=== PATIENT | female | born 1970 | race Caucasian/White ===

== ENCOUNTER → 2016-10-28 | Outpatient (REF) | payer OTHER | LOC: M LAB REF 12:43 | PROVIDERS: ATTEND Physician Assistant | DX: J02.9 Acute pharyngitis, unspecified (principal) ==

== ENCOUNTER 2016-12-27 07:27 | Emergency (ER) | payer OTHER ==
[~2016-12-27] VITALS: Ht 162.6 cm; Wt 75.7 kg
[2016-12-27 07:34] VITALS: BP 159/99
[2016-12-27] MEDS ORDERED: ZOLO100T PO (07:36)
[2016-12-27] MEDS ORDERED: MAGIC MOUTHWASH SUSPENSION BTL SSP ONE (08:00)
== END 2016-12-27 08:47 | disposition home or self-care (01) ==
LOC: M ED 07:54
DX: J02.9 Acute pharyngitis, unspecified (principal); F32.9 Major depressive disorder, single episode, unspecified

== ENCOUNTER → 2017-02-24 | Outpatient (REF) ==
[~2017-02-24] MED LIST: ZOLO100T PO
[2017-02-24 10:00] LABS: MEAN CORPUSCULAR HEMOGLOBIN 31.9 pg (27.0-33.0); MEAN CORPUSCULAR HGB CONC 34.4 g/dl (32.0-36.5); RED CELL DISTRIBUTION WIDTH 12.5 % (11.5-14.5); WHITE BLOOD COUNT 6.5 K/mm3 (4.0-10.0)
[2017-02-24 10:22] LABS: ANION GAP 4 MEQ/L (8-16); BLOOD UREA NITROGEN 15 MG/DL (7-18); CALCIUM LEVEL 8.9 MG/DL (8.5-10.1); CARBON DIOXIDE LEVEL 29 MEQ/L (21-32); CHLORIDE LEVEL 105 MEQ/L (98-107); CHOLESTEROL LEVEL 192 MG/DL (<200); CREATININE FOR GFR 0.87 MG/DL (0.55-1.02); GLOMERULAR FILTRATION RATE > 60.0 (>58); GLUCOSE, FASTING 80 MG/DL (70-105); POTASSIUM SERUM 4.4 MEQ/L (3.5-5.1); SODIUM LEVEL 138 MEQ/L (136-145); TRIGLYCERIDES LEVEL 162 MG/DL (<150)
--- NOTE | 2017-02-24 12:33 | REPMRS ---
Patient History The patient states she has not had a clinical breast exam in over a year. Family history of breast cancer in mother at age 62 and endometrial cancer in mother at age 23. Digital Mammo Screening Bilat: February 24, 2017 - Exam #: [id number] Bilateral CC and MLO view(s) were taken. Technologist: Kalyani Mcguire, Technologist Prior study comparison: February 19, 2016, bilateral digital mammo screening bilat performed at [facility]. December 18, 2014, bilateral digital mammo screening bilat performed at [facility]. FINDINGS: There are scattered fibroglandular densities. There has been no change in the appearance of the mammogram from the prior studies. There is a mild amount of residual fibroglandular tissue which is fairly symmetric. There is no interval development of dominant mass, architectural distortion, or clustered microcalcification suggestive of malignancy. ASSESSMENT: BI-RADS/ACR category 1 mammogram. Negative. Recommendation Routine screening mammogram in 1 year (for women over age 40). This mammogram was interpreted with the aid of an FDA-approved computer-aided dectection system. Electronically Signed By: Carter Zuluaga MD 02/24/17 0793
--- NOTE | 2017-02-24 22:25 | ECGEPIP ---
Stationary ECG Study [facility] Test Date: 2017-02-24 Pat Name: ANT LUQUE Department: Room: - Gender: F Flight Service Agent: : 1970 Requested By: SHARAN ALLEN Order Number: [id number] Reading MD: Petros Ferreira Measurements Intervals [place] Rate: 59 P: 24 OR: 146 QRS: 45 QRSD: 87 T: 43 QT: 379 QTc: 377 Interpretive Statements Sinus bradycardia Otherwise normal EKG No significant change since 02/18/2016 Electronically Signed On 02-24-2017 22:24:59 EDT by Petros Ferreira
--- NOTE | 2017-02-25 02:46 | REP ---
Clinical: Annual employee health examination . Comparison: 02/18/2016 . Technique: PA and lateral. Findings: The mediastinum and cardiac silhouette are normal. The lung spears are clear and without acute consolidation, effusion, or pneumothorax. Incidental note is made of azygos fissure. The skeletal structures are intact and normal. Impression: 1. No acute cardiopulmonary process. Signed by Taiwo Moreno MD 02/25/2017 02:38 A
== END ==
LOC: M LAB 09:22
PROVIDERS: ATTEND Family Medicine
DX: Z02.1 Encounter for pre-employment examination (principal)

== ENCOUNTER → 2019-02-06 | Outpatient (REF) ==
[2019-02-06 10:38] LABS: HEMATOCRIT 42.1 % (36.0-47.0); HEMOGLOBIN 14.3 g/dl (12.0-15.5); MEAN CORPUSCULAR HEMOGLOBIN 31.3 pg (27.0-33.0); MEAN CORPUSCULAR VOLUME 92.1 fl (80.0-96.0); PLATELET COUNT, AUTOMATED 277 10^3/uL (150-450); RED BLOOD COUNT 4.57 10^6/uL (4.00-5.40); WHITE BLOOD COUNT 6.7 10^3/uL (4.0-10.0)
--- NOTE | 2019-02-06 10:48 | REP ---
Clinical: Nursing contract requirement . Comparison: 03/02/2018 . Technique: PA and lateral. Findings: The mediastinum and cardiac silhouette are normal. The lung spears are clear and without acute consolidation, effusion, or pneumothorax. The skeletal structures are intact and normal. Impression: 1. No acute cardiopulmonary process. Electronically Signed by Taiwo Moreno MD 02/06/2019 10:40 A
[2019-02-06 11:01] LABS: BLOOD UREA NITROGEN 14 MG/DL (7-18); CALCIUM LEVEL 9.5 MG/DL (8.5-10.1); CARBON DIOXIDE LEVEL 27 MEQ/L (21-32); CHLORIDE LEVEL 107 MEQ/L (98-107); CHOLESTEROL LEVEL 208 MG/DL (<200); CHOLESTEROL RISK RATIO 3.851 (<5); CREATININE FOR GFR 0.87 MG/DL (0.55-1.30); GLOMERULAR FILTRATION RATE > 60.0 (>58); GLUCOSE, FASTING 80 MG/DL (70-100); HDL CHOLESTEROL 54 MG/DL (>40); LDL CHOLESTEROL 124 MG/DL (<100); NON-HDL-C 154 MG/DL; POTASSIUM SERUM 4.7 MEQ/L (3.5-5.1); SODIUM LEVEL 140 MEQ/L (136-145); TRIGLYCERIDES LEVEL 151 MG/DL (<150)
--- NOTE | 2019-02-06 22:49 | ECGEPIP ---
[facility] Test Date: 2019-02-06 Pat Name: ANT LUQUE Department: Room: - Gender: Female [employer]: CASH : 1970 Requested By: SHARAN ALLEN Order Number: [id number] Reading MD: Humberto Arnold Measurements Intervals [place] Rate: 62 P: 43 MA: 156 QRS: 46 QRSD: 88 T: 44 QT: 374 QTc: 381 Interpretive Statements SINUS RHYTHM No remarkable changes Prior on 03/02/18 at 9:32 Electronically Signed on 02-06-2019 22:49:28 EDT by Humberto Arnold
== END ==
LOC: M LAB 09:39
PROVIDERS: ATTEND Family Medicine
DX: Z02.89 Encounter for other administrative examinations (principal)

== ENCOUNTER → 2019-02-07 | Outpatient (CLI) | payer OTHER ==
--- NOTE | 2019-02-07 14:59 | REP ---
PELVIS ULTRASOUND: Real-time sonographic evaluation of the pelvis performed utilizing transabdominal and endovaginal technique. The bladder measures 7.7 x 7.2 x 8.3 cm. The patient has had a prior hysterectomy. Right ovary measures 1.9 x 1.5 x 1.0 cm. There is no evidence of right ovarian torsion, resistive index 0.58 with duplex Doppler evaluation. Left ovary is not visualized. I see no evidence of mass or free fluid. IMPRESSION: Status post hysterectomy. Left ovary not visualized. Normal right ovary. No evidence of pelvis mass or free fluid. Electronically Signed by Carter Zuluaga MD 02/07/2019 04:19 P
== END ==
LOC: M RAD 12:48
PROVIDERS: ATTEND Family Medicine
DX: R10.2 Pelvic and perineal pain (principal); Z90.79 Acquired absence of other genital organ(s)

== ENCOUNTER → 2019-03-02 | Outpatient (REF) | payer OTHER ==
[2019-03-08 16:11] LABS: HPV HYBRID CAPTURE II Negative (Negative)
== END ==
LOC: M SFHCWAGY 11:39
PROVIDERS: ATTEND Nurse Practitioner Women's Health
DX: Z12.4 Encounter for screening for malignant neoplasm of cervix (principal)
CPT/HCPCS: 87624; G0123

== ENCOUNTER → 2019-03-08 | Outpatient (CLI) | payer OTHER ==
--- NOTE | 2019-03-08 10:17 | REPMRS ---
Patient History The patient states she had a clinical breast exam in February 2019. Family history of endometrial cancer at age 23 in mother, breast cancer at age 62 in mother. Digital Mammo Screening Bilat: March 08, 2019 - Exam #: [id number] Bilateral CC and MLO view(s) were taken. Technologist: Funmi Yang, Technologist Prior study comparison: March 02, 2018, bilateral digital mammo screening bilat performed at [facility]. February 24, 2017, bilateral digital mammo screening bilat performed at [facility]. February 19, 2016, bilateral digital mammo screening bilat performed at [facility]. FINDINGS: There are scattered fibroglandular densities. There has been no change in the appearance of the mammogram from the prior studies. There is a mild amount of scattered fibroglandular density which is fairly symmetric. There is no interval development of dominant mass, architectural distortion, or grouped microcalcification suggestive of malignancy. 3-D tomosynthesis shows no additional findings. Assessment: BI-RADS/ACR category 1 mammogram. Negative Mammogram. Recommendation Routine screening mammogram of both breasts in 1 year (for women over age 40). This patient's Lifetime Breast Cancer Risk is estimated at 16.5 %. This mammogram was interpreted with the aid of an FDA-approved computer-aided dectection system. Electronically Signed By: Sukumar Roberts MD 03/08/19 [id number]
== END ==
LOC: M RAD 09:10
PROVIDERS: ATTEND Family Medicine
DX: Z12.31 Encounter for screening mammogram for malignant neoplasm of breast (principal); Z80.49 Family history of malignant neoplasm of other genital organs; Z80.3 Family history of malignant neoplasm of breast

== ENCOUNTER → 2019-03-15 | Outpatient (CLI) | payer OTHER ==
[~2019-03-15] MED LIST changes: +PROHANCE 279.3MG/ML 15ML VIAL (A9576) As Ordered ONE
--- NOTE | 2019-03-15 11:23 | REP ---
MRI PELVIS WITH AND WITHOUT CONTRAST: Correlation ultrasound 02/07/2019. History is pelvic pain. TECHNIQUE: Multiple sequences obtained in the axial, coronal, and sagittal planes prior to and following the intravenous administration of 15 mL of ProHance. The patient has had a hysterectomy. The ovaries are normal in size and appearance with no evidence of adnexal mass. No pelvic adenopathy is seen in the visualized pelvis. There is also no evidence of free fluid in the visualized pelvis. Urinary bladder is minimally distended and no optimally evaluated. Visualized osseous structures demonstrate no abnormal bone marrow signal. IMPRESSION: Essentially negative MRI of the pelvis with and without contrast status post hysterectomy. Ovaries are normal. No mass, adenopathy, or free fluid in the visualized pelvis. Electronically Signed by Carter Zuluaga MD 03/15/2019 04:22 P
== END ==
LOC: M RAD 09:20
PROVIDERS: ATTEND Nurse Practitioner Women's Health
DX: R10.2 Pelvic and perineal pain (principal); Z90.710 Acquired absence of both cervix and uterus; R19.8 Other specified symptoms and signs involving the digestive system and abdomen
CPT/HCPCS: 72197; A9576

== ENCOUNTER 2019-04-17 06:38 | Day surgery (SDC) | payer OTHER ==
[~2019-04-17] VITALS: Ht 162.6 cm; Wt 73.9 kg
[~2019-04-17 06:38] MED LIST changes: +COLA100C5 PO; +CVS1CAP2 PO; +MULTCAP PO; +NS 1,000 ML IV ONE; -PROHANCE 279.3MG/ML 15ML VIAL (A9576) As Ordered ONE
[2019-04-17] MEDS ORDERED: LIDOCAINE 2% INJ 100 MG/5 ML SDV (FOR ANES.) As Ordered ONE (06:56)
[2019-04-17] MEDS ORDERED: propofoL 200 MG/20 ML VIAL As Ordered ONE ×2 (06:56→07:50)
--- NOTE | 2019-04-17 08:10 | ROOR ---
Patient Name: Katey Pickens Procedure Date: 04/17/2019 7:33 AM Date of : 1970 Age: 48 Room: [facility] Gender: Female Note Status: Finalized Procedure: Colonoscopy Indications: Screening for colorectal malignant neoplasm, Incidental - Change in bowel habits, Incidental - Constipation Providers: Kayode Pham MD Referring MD: Garret Nuno MD Requesting Provider: Medicines: Monitored Anesthesia Care Complications: No immediate complications. Procedure: Pre-Anesthesia Assessment: - Prior to the procedure, a History and Physical was performed, and patient medications and allergies were reviewed. The patient is competent. The risks and benefits of the procedure and the sedation options and risks were discussed with the patient. All questions were answered and informed consent was obtained. Patient identification and proposed procedure were verified by the physician, the nurse and the anesthesiologist in the procedure room. Mental Status Examination: alert and oriented. Airway Examination: normal oropharyngeal airway and neck mobility. Respiratory Examination: clear to auscultation. CV Examination: normal. Prophylactic Antibiotics: The patient does not require prophylactic antibiotics. Prior Anticoagulants: The patient has taken no previous anticoagulant or antiplatelet agents. ASA Grade Assessment: II - A patient with mild systemic disease. After reviewing the risks and benefits, the patient was deemed in satisfactory condition to undergo the procedure. The anesthesia plan was to use monitored anesthesia care (MAC). Immediately prior to administration of medications, the patient was re-assessed for adequacy to receive sedatives. The heart rate, respiratory rate, oxygen saturations, blood pressure, adequacy of pulmonary ventilation, and response to care were monitored throughout the procedure. The physical status of the patient was re-assessed after the procedure. The Colonoscope was introduced through the anus and advanced to the terminal ileum, with identification of the appendiceal orifice and IC valve. The colonoscopy was performed without difficulty. The patient tolerated the procedure well. The quality of the bowel preparation was good. The terminal ileum, ileocecal valve, appendiceal orifice, and rectum were photographed. Scope insertion time was 3 minutes. Scope withdrawal time was 9 minutes. The total duration of the procedure was 12 minutes. Findings: The perianal and digital rectal examinations were normal. The terminal ileum appeared normal. Non-bleeding external and internal hemorrhoids were found during retroflexion. The hemorrhoids were medium-sized. No other significant abnormalities were identified in a careful examination of the remainder of the colon. Impression: - The examined portion of the ileum was normal. - Non-bleeding external and internal hemorrhoids. - No specimens collected. Recommendation: - Patient has a contact number available for emergencies. The signs and symptoms of potential delayed complications were discussed with the patient. Return to normal activities tomorrow. Written discharge instructions were provided to the patient. - High fiber diet. - Continue present medications. - Await pathology results. - Repeat colonoscopy in 10 years for screening purposes. - Telephone GI clinic if symptomatic. - Return to primary care physician. Kayode Pham MD Kayode Pham MD 04/17/2019 8:09:59 AM Electronically signed by Kayode Pham MD Number of Addenda: 0 Note Initiated On: 04/17/2019 7:33 AM Estimated Blood Loss: Estimated blood loss: none.
[2019-04-17 08:20] VITALS: BP 154/91
== END 2019-04-17 08:24 | disposition home or self-care (01) ==
LOC: M OPP 06:38
PROVIDERS: ATTEND Internal Medicine Gastroenterology
DX: K64.8 Other hemorrhoids (principal); R19.4 Change in bowel habit; K59.00 Constipation, unspecified; Z12.11 Encounter for screening for malignant neoplasm of colon

== ENCOUNTER 2019-05-09 13:27 | Outpatient (RCR) | payer OTHER ==
[~2019-05-09 13:27] MED LIST changes: -NS 1,000 ML IV ONE
== END 2019-05-13 ==
LOC: M PT 13:27
PROVIDERS: ATTEND Nurse Practitioner Family
DX: Z51.89 Encounter for other specified aftercare (principal); M54.31 Sciatica, right side

== ENCOUNTER → 2019-05-29 | Outpatient (CLI) | payer OTHER ==
--- NOTE | 2019-05-29 14:20 | REPVR ---
EXAM: MR Lumbar Spine Without Contrast. EXAM DATE/TIME: 05/29/2019 1:28 PM CLINICAL HISTORY: 48 years old, female; Pain; Lumbago with sciatica; Right; Additional info: RT sciatica TECHNIQUE: Imaging protocol: Multiplanar magnetic resonance images of the lumbar spine without intravenous contrast. COMPARISON: No relevant prior studies available. FINDINGS: Vertebrae: The lumbar vertebral bodies are normal in height. The curvature of lumbar spine is normal. The alignment of the lumbar spine is normal. Spinal cord: The conus medullaris is normal in appearance and location at L1. T12-L1: No disc space narrowing. No disc bulge or protrusion. Normal facet joints. No neural foraminal stenosis. No lateral recess stenosis. No central canal stenosis. L1-L2: No disc space narrowing. No disc bulge or protrusion. Normal facet joints. No neural foraminal stenosis. No lateral recess stenosis. No central canal stenosis. L2-L3: No disc space narrowing. No disc bulge or protrusion. Normal facet joints. No neural foraminal stenosis. No lateral recess stenosis. No central canal stenosis. L3-L4: Mild disc desiccation without disc narrowing. There is a 1.5 mm disc bulge without focal disc protrusion. Minimal facet arthropathy. Mild ligamentum flavum hypertrophy. No neural foraminal stenosis. No lateral recess stenosis. No central canal stenosis. L4-L5: No disc space narrowing. Disc desiccation. No disc bulge or protrusion. Normal facet joints. No neural foraminal stenosis. No lateral recess stenosis. No central canal stenosis. L5-S1: Mild/moderate disc space narrowing. A 5 mm right paracentral disc protrusion displaces and compresses the traversing right S1 nerve root at the lateral recess (series 601 image 3, series 401 image 8). Slight bilateral facet degeneration. No neural foraminal stenosis. No lateral recess stenosis. No central canal stenosis. Sacrum/coccyx: The visualized sacroiliac joints are normal. Other bones/joints: The bone marrow signal intensity is normal. Soft tissues: The paravertebral soft tissues are unremarkable. IMPRESSION: At L5-S1, a 5 mm right paracentral disc protrusion displaces and compresses the traversing right S1 nerve root at the lateral recess. Electronically signed by: Gage Stone On 05/29/2019 14:20:15 PM
--- NOTE | 2019-05-29 14:33 | REPVR ---
EXAM: MR Pelvis Without Contrast, Musculoskeletal EXAM DATE/TIME: 05/29/2019 1:28 PM CLINICAL HISTORY: 48 years old, female; Hip pain and pelvic pain; Right hip; Additional info: RT sciatica TECHNIQUE: Imaging protocol: Magnetic resonance images of the pelvis without intravenous contrast. Exam focused on the sacrum and sacroiliac joints. COMPARISON: MR pelvis without contrast 03/15/2019. FINDINGS: Intraperitoneal space: No free fluid in the abdomen or pelvis. Bladder: Urinary bladder is normal without wall thickening, mass or stone. Reproductive: Hysterectomy. Bones/joints: At L5-S1, a 5 mm right paracentral disc protrusion compresses and displaces the traversing right S1 nerve root (series 901 image 18 and series 1301 image 32). A right S3 sacral meningeal cyst (Tarlov cyst) is 8 x 7 x 6 mm (series 901 image 17 and series 1001 image 14). A Schmorl node at the right posterior aspect of the superior S1 endplate is 6 x 5 x 5 mm. Bone marrow signal intensity is normal. The sacroiliac joints are normal. Soft tissues: Unremarkable. IMPRESSION: 1. At L5-S1, a 5 mm right paracentral disc protrusion compresses and displaces the traversing right S1 nerve root. 2. A right S3 sacral meningeal cyst (Tarlov cyst) is 8 x 7 x 6 mm. It is of doubtful clinical significance. Electronically signed by: Gage Stone On 05/29/2019 14:32:57 PM
== END ==
LOC: M RAD 12:25
PROVIDERS: ATTEND Nurse Practitioner Family
DX: M51.27 Other intervertebral disc displacement, lumbosacral region (principal)

== ENCOUNTER 2019-06-01 08:11 | Outpatient (RCR) | payer OTHER | END 2019-06-12 | LOC: M PT 08:11 | PROVIDERS: ATTEND Nurse Practitioner Family | DX: Z51.89 Encounter for other specified aftercare (principal); M54.31 Sciatica, right side ==

== ENCOUNTER 2019-06-21 10:00 | Outpatient (RCR) | payer OTHER | END 2019-07-13 | LOC: M PT 10:00 | PROVIDERS: ATTEND Nurse Practitioner Family | DX: M54.31 Sciatica, right side (principal) ==

== ENCOUNTER → 2020-02-19 | Outpatient (REF) ==
[2020-02-19 10:23] LABS: HEMATOCRIT 40.7 % (36.0-47.0); HEMOGLOBIN 13.5 g/dl (12.0-15.5); MEAN CORPUSCULAR HEMOGLOBIN 30.9 pg (27.0-33.0); MEAN CORPUSCULAR HGB CONC 33.2 g/dl (32.0-36.5); MEAN CORPUSCULAR VOLUME 93.1 fl (80.0-96.0); PLATELET COUNT, AUTOMATED 287 10^3/uL (150-450); RED BLOOD COUNT 4.37 10^6/uL (4.00-5.40); WHITE BLOOD COUNT 6.7 10^3/uL (4.0-10.0)
[2020-02-19 10:51] LABS: BLOOD UREA NITROGEN 18 MG/DL (7-18); CALCIUM LEVEL 8.7 MG/DL (8.5-10.1); CARBON DIOXIDE LEVEL 27 MEQ/L (21-32); CHLORIDE LEVEL 109 MEQ/L (98-107); CHOLESTEROL LEVEL 216 MG/DL (<200); CHOLESTEROL RISK RATIO 3.857 (<5); CREATININE FOR GFR 0.92 MG/DL (0.55-1.30); GLOMERULAR FILTRATION RATE > 60.0 (>58); GLUCOSE, FASTING 86 MG/DL (70-100); HDL CHOLESTEROL 56 MG/DL (>40); LDL CHOLESTEROL 116 MG/DL (<100); NON-HDL-C 160 MG/DL; POTASSIUM SERUM 5.2 MEQ/L (3.5-5.1); SODIUM LEVEL 141 MEQ/L (136-145); TRIGLYCERIDES LEVEL 218 MG/DL (<150)
== END ==
LOC: M LAB 09:53
PROVIDERS: ATTEND Nurse Practitioner Adult Health
DX: Z00.00 Encounter for general adult medical examination without abnormal findings (principal)

== ENCOUNTER → 2020-05-01 | Outpatient (REF) ==
--- NOTE | 2020-05-01 14:39 | REPMRS ---
Patient History The patient states she has not had a clinical breast exam in over a year. Family history of endometrial cancer at age 23 in mother, breast cancer at age 62 in mother. No Hormone Replacement Therapy Digital Woman Screen Mammo: May 01, 2020 - Exam #: [id number] Bilateral CC and MLO view(s) were taken. Technologist: Halley Jimenez, Technologist Prior study comparison: March 08, 2019, bilateral digital mammo screening bilat, performed at [facility]. March 02, 2018, bilateral digital mammo screening bilat, performed at [facility]. February 24, 2017, bilateral digital mammo screening bilat, performed at [facility]. FINDINGS: The breast tissue is almost entirely fat. The Volpara volumetric breast density category is: A. There has been no change in the appearance of the mammogram from the prior studies. There is no interval development of dominant mass, architectural distortion, or grouped microcalcification typical of malignancy. 3-D tomosynthesis shows no additional findings. Assessment: BI-RADS/ACR category 1 mammogram. Negative Mammogram. Recommendation Routine screening mammogram of both breasts in 1 year (for women over age 40). This patient's Lifetime Breast Cancer RIsk is estimated at 16.3 %. This mammogram was interpreted with the aid of an FDA-approved computer-aided dectection system. Electronically Signed By: Sukumar Roberts MD 05/01/20 1940
== END ==
LOC: M WHC 13:24
PROVIDERS: ATTEND Family Medicine
DX: Z00.00 Encounter for general adult medical examination without abnormal findings (principal)

== ENCOUNTER → 2020-05-21 | Outpatient (CLI) | payer OTHER | LOC: M LABSMTC 09:20 | PROVIDERS: ATTEND Pediatrics | DX: Z11.59 Encounter for screening for other viral diseases (principal) ==

== ENCOUNTER → 2020-12-13 | Outpatient (CLI) | payer OTHER | LOC: M LABSMTC 10:39 | PROVIDERS: ATTEND Ophthalmology | DX: Z20.822 Contact with and (suspected) exposure to COVID-19 (principal) ==

== ENCOUNTER → 2021-01-03 | Outpatient (CLI) | payer OTHER | LOC: M LABSMTC 09:45 | PROVIDERS: ATTEND Ophthalmology | DX: Z01.812 Encounter for preprocedural laboratory examination (principal); Z20.822 Contact with and (suspected) exposure to COVID-19; H26.9 Unspecified cataract ==

== ENCOUNTER → 2021-01-24 | Outpatient (CLI) | payer OTHER | LOC: M LABSMTC 10:03 | PROVIDERS: ATTEND Ophthalmology | DX: Z20.822 Contact with and (suspected) exposure to COVID-19 (principal) ==

== ENCOUNTER → 2021-02-26 | Outpatient (REF) | LOC: M LABSMTC 10:32 | PROVIDERS: ATTEND Pediatrics | DX: Z20.822 Contact with and (suspected) exposure to COVID-19 (principal) ==

== ENCOUNTER → 2021-06-18 | Outpatient (REF) | LOC: M LABSMTC 09:12 | PROVIDERS: ATTEND Pediatrics | DX: Z20.822 Contact with and (suspected) exposure to COVID-19 (principal) ==

== ENCOUNTER → 2021-08-04 | Outpatient (REF) | LOC: M EMP 08:48 | PROVIDERS: ATTEND Family Medicine | DX: Z20.822 Contact with and (suspected) exposure to COVID-19 (principal) ==

== ENCOUNTER → 2021-09-02 | Outpatient (CLI) | payer BC, OTHER ==
[2021-09-02 08:59] LABS: ALBUMIN 3.8 GM/DL (3.2-5.2); ALT/SGPT 27 U/L (12-78); BILIRUBIN,TOTAL 0.3 MG/DL (0.2-1.0); BLOOD UREA NITROGEN 18 MG/DL (7-18); CALCIUM LEVEL 9.6 MG/DL (8.5-10.1); CARBON DIOXIDE LEVEL 30 MEQ/L (21-32); CHLORIDE LEVEL 110 MEQ/L (98-107); CHOLESTEROL LEVEL 223 MG/DL (<200); CHOLESTEROL RISK RATIO 3.378 (<5); CREATININE FOR GFR 0.95 MG/DL (0.55-1.30); GLOMERULAR FILTRATION RATE > 60.0 (>51); GLUCOSE, FASTING 65 MG/DL (70-100); HDL CHOLESTEROL 66 MG/DL (>40); LDL CHOLESTEROL 135 MG/DL (<100); NON-HDL-C 157 MG/DL; POTASSIUM SERUM 5.4 MEQ/L (3.5-5.1); SODIUM LEVEL 142 MEQ/L (136-145); TOTAL PROTEIN 6.9 GM/DL (6.4-8.2); TRIGLYCERIDES LEVEL 109 MG/DL (<150)
== END ==
LOC: M LAB 07:59
PROVIDERS: ATTEND Family Medicine
DX: Z00.00 Encounter for general adult medical examination without abnormal findings (principal)

== ENCOUNTER → 2021-11-10 | Outpatient (REF) | LOC: M LABSMTC 09:27 | PROVIDERS: ATTEND Family Medicine | DX: Z20.822 Contact with and (suspected) exposure to COVID-19 (principal) ==

== ENCOUNTER → 2022-03-02 | Outpatient (REF) | LOC: M EMP 09:00 | PROVIDERS: ATTEND Family Medicine | DX: Z11.52 Encounter for screening for COVID-19 (principal) ==

== ENCOUNTER → 2022-05-06 | Outpatient (CLI) | payer BC | LOC: M WHC 07:52 | PROVIDERS: ATTEND Family Medicine | DX: Z12.31 Encounter for screening mammogram for malignant neoplasm of breast (principal) ==

== ENCOUNTER → 2022-05-08 | Outpatient (REF) ==
[2022-05-08 15:45] LABS: HEMATOCRIT 41.2 % (36.0-47.0); HEMOGLOBIN 13.8 g/dl (12.0-15.5); MEAN CORPUSCULAR HEMOGLOBIN 30.3 pg (27.0-33.0); MEAN CORPUSCULAR HGB CONC 33.5 g/dl (32.0-36.5); MEAN CORPUSCULAR VOLUME 90.5 fl (80.0-96.0); PLATELET COUNT, AUTOMATED 291 10^3/uL (150-450); RED BLOOD COUNT 4.55 10^6/uL (4.00-5.40); WHITE BLOOD COUNT 6.4 10^3/uL (4.0-10.0)
[2022-05-08 16:26] LABS: BLOOD UREA NITROGEN 23 MG/DL (7-18); CALCIUM LEVEL 9.5 MG/DL (8.5-10.1); CARBON DIOXIDE LEVEL 27 MEQ/L (21-32); CHLORIDE LEVEL 107 MEQ/L (98-107); CHOLESTEROL LEVEL 240 MG/DL (<200); CHOLESTEROL RISK RATIO 3.529 (<5); CREATININE FOR GFR 0.99 MG/DL (0.55-1.30); GLOMERULAR FILTRATION RATE > 60.0 (>51); GLUCOSE, FASTING 100 MG/DL (70-100); HDL CHOLESTEROL 68 MG/DL (>40); LDL CHOLESTEROL 143 MG/DL (<100); NON-HDL-C 172 MG/DL; POTASSIUM SERUM 4.6 MEQ/L (3.5-5.1); SODIUM LEVEL 139 MEQ/L (136-145); TRIGLYCERIDES LEVEL 147 MG/DL (<150)
== END ==
LOC: M LAB 14:57
PROVIDERS: ATTEND Family Medicine
DX: Z02.89 Encounter for other administrative examinations (principal)

== ENCOUNTER → 2023-05-12 | Outpatient (REF) | LOC: M WHC 09:39 | PROVIDERS: ATTEND Family Medicine | DX: Z02.1 Encounter for pre-employment examination (principal); Z12.31 Encounter for screening mammogram for malignant neoplasm of breast ==

== ENCOUNTER → 2023-07-23 | Outpatient (CLI) | payer BC ==
[~2023-07-23] MED LIST changes: +SERT50TA29 PO; +VITMTA PO
== END ==
LOC: M EKG 12:56
PROVIDERS: ATTEND Anesthesiology
DX: Z01.818 Encounter for other preprocedural examination (principal)

== ENCOUNTER → 2024-05-17 | Outpatient (CLI) | payer BC ==
[~2024-05-17] MED LIST changes: +IBUP-1022 PO; +OXYC1TAB23 PO
== END ==
LOC: M WHC 06:49
PROVIDERS: ATTEND Family Medicine
DX: Z12.31 Encounter for screening mammogram for malignant neoplasm of breast (principal)

== ENCOUNTER → 2025-06-01 | Outpatient (CLI) | payer BC ==
[~2025-06-01] MED LIST changes: -IBUP-1022 PO; +IBUP600T42 PO
== END ==
LOC: M WHC 14:56
PROVIDERS: ATTEND Family Medicine
DX: Z12.31 Encounter for screening mammogram for malignant neoplasm of breast (principal); R92.313 Mammographic fatty tissue density, bilateral breasts